=== PATIENT | male | born 1995 | race Caucasian/White ===

== ENCOUNTER → 2019-04-29 | Outpatient (CLI) | payer BC, OTHER ==
--- NOTE | 2019-04-29 13:04 | US ---
EXAMINATION TYPE: US abdomen limited DATE OF EXAM: 04/29/2019 COMPARISON: NONE CLINICAL HISTORY: R94.5 Elevated liver function test. no symptoms, diabetic EXAM MEASUREMENTS: Liver Length: 17.9 cm Gallbladder Wall: 0.2 cm CBD: 0.5 cm Right Kidney: 11.2 x 5.4 x 4.3 cm Pancreas: tail obscured by bowel gas, otherwise wnl Liver: wnl Gallbladder: wnl Evidence for sonographic Oliver's sign: no CBD: wnl Right Kidney: wnl IMPRESSION: Liver is homogeneous sonographically despite elevated liver function tests. No sonographi c evidence of cholelithiasis nor acute cholecystitis.
== END | disposition home or self-care (01) ==
LOC: RADUSWWP 07:47
PROVIDERS: ATTEND Internal Medicine
DX: R79.89 Other specified abnormal findings of blood chemistry (principal)
CPT/HCPCS: 76705

== ENCOUNTER → 2021-01-27 | Outpatient (CLI) | payer BC, OTHER ==
--- NOTE | 2021-01-27 20:08 | US ---
EXAMINATION TYPE: US liver DATE OF EXAM: 01/27/2021 COMPARISON: NONE CLINICAL HISTORY: R94.5 ABN LIVER FUNCTIONS. EXAM MEASUREMENTS: Liver Length: 16.5 cm Gallbladder Wall: 0.2 cm CBD: 0.3 cm Right Kidney: 11.4x6.5x4.7 cm Pancreas: Obscured by bowel gas Liver: wnl Gallbladder: wnl Evidence for sonographic Oliver's sign: No CBD: wnl Right Kidney: wnl IMPRESSION: 1. No acute abnormality
== END | disposition home or self-care (01) ==
LOC: RADUSWWP 09:18
PROVIDERS: ATTEND Internal Medicine
DX: R94.5 Abnormal results of liver function studies (principal)
CPT/HCPCS: 76705

== ENCOUNTER → 2021-06-30 | Outpatient (CLI) | payer BC, OTHER ==
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
== END | disposition home or self-care (01) ==
LOC: RADMRIMAIN 11:00
PROVIDERS: ATTEND Orthopaedic Surgery
DX: S83.512A Sprain of anterior cruciate ligament of left knee, initial encounter (principal); Y93.55 Activity, bike riding

== ENCOUNTER → 2021-08-09 | Outpatient (CLI) | payer BC, OTHER ==
[2021-08-09 18:05] LABS: Basophils # (A) 0.04 X 10*3/uL (0.00-0.10); Basophils % (A) 0.7 %; Eosinophils # (A) 0.23 X 10*3/uL (0.04-0.35); Eosinophils % (A) 4.2 %; HCT 48.5 % (39.6-50.0); HGB 15.4 g/dL (13.0-17.0); Immature Grans, Automated 0 %; Lymphocytes % (A) 36.4 %; MCH 29.3 pg (27.0-32.0); MCHC 31.8 g/dL (32.0-37.0); MCV 92.2 fL (80.0-97.0); Mean Platelet Volume 11.3 fL (9.5-12.2); Monocytes # (A) 0.33 X 10*3/uL (0.20-1.00); NRBC Per 100 WBC 0 /100 WBCS (0.0-0.0); Neutrophils % (A) 52.7 %; Platelet Count 275 X 10*3/uL (140-440); RBC 5.26 X 10*6/uL (4.40-5.60); RDW 11.8 % (11.5-14.5)
[2021-08-09 22:32] LABS: Anion Gap 14.2 mmol/L (10.00-18.00); Carbon Dioxide 26.8 mmol/L (20.0-27.5); Potassium 4.5 mmol/L (3.5-5.5)
== END | disposition home or self-care (01) ==
LOC: LABPAT 13:05
PROVIDERS: ATTEND Orthopaedic Surgery
DX: Z01.812 Encounter for preprocedural laboratory examination (principal); M23.91 Unspecified internal derangement of right knee
CPT/HCPCS: 80051; 85025

== ENCOUNTER 2021-08-18 07:26 | Day surgery (SDC) | payer BC, OTHER ==
[2021-08-16 18:15] VITALS: BMI 25.8
--- NOTE | 2021-08-17 15:10 | HP ---
HISTORY AND PHYSICAL REASON FOR ADMISSION: Surgery scheduled for 08/18/2021 HISTORY OF PRESENT ILLNESS: Jan Duque is a 26-year-old patient seen with progressive right knee pain. We discussed options. He elected to proceed with right knee arthroscopy. Consent is obtained. PAST MEDICAL HISTORY: Insulin-dependent diabetes. SURGICAL HISTORY: Noncontributory. DAILY MEDICATIONS: None. ALLERGIES: None noted. SOCIAL HISTORY: Denies tobacco use. PHYSICAL EVALUATION OF THE RIGHT KNEE: Range of motion is -1/2-110. Tenderness along the medial joint line. Positive medial Zeeshan's. Mild effusion. Ligaments are stable. Distal neurovascular exam is intact. RADIOGRAPHS: Radiographs of the right knee revealed no osseous abnormality. MRI right knee revealed a partial anterior cruciate ligament tear. IMPRESSION: 1. Internal derangement right knee with partial anterior cruciate ligament tear. 2. Insulin-dependent diabetes. PLAN: Right knee arthroscopy with debridement, partial ACL tear. Surgery scheduled for 08/18/2021. MMODL / IJN: [id number] /
[~2021-08-18 07:26] MED LIST: DEXAMETHASONE SOD PHOSPHATE 4 MG/ML 1 ML VIAL IV ONE; LACTATED RINGERS 1,000 ML IV SCH; LIDOCAINE 1% (10MG/ML) FOR IV START INTRADERMA PRN; ONDANSETRON 4 MG/2 ML VIAL IVP ONE; SCOPOLAMINE 1 MG/72 HR PATCH TRANSDERM ONE
[2021-08-18 08:22] LABS: Glucose,Whole Blood 152 mg/dL (70-110)
[2021-08-18] MEDS ORDERED: BUPIVACAINE (PF) 0.25% 30 ML VIAL SQ ONE ×2 (09:34→10:03)
[2021-08-18] MEDS ORDERED: LIDOCAINE 2% INJ 20 MG/ML (2 ML VIAL) ONE (09:35)
[2021-08-18] MEDS ORDERED: PROPOFOL 10 MG/ML 20 ML VIAL IV ONE (09:35)
[2021-08-18] MEDS ORDERED: fentaNYL (PF) 50 MCG/ML 2 ML AMP ONE (09:35)
[2021-08-18] MEDS ORDERED: MIDAZOLAM 2 MG/2 ML VIAL ONE (09:35)
[2021-08-18] MEDS ORDERED: HYDROmorphone (PF) 1 MG/ML ONE (09:35)
--- NOTE | 2021-08-18 10:20 | P.OP ---
Date of Procedure: 08/18/21 Preoperative Diagnosis: Internal derangement right knee Postoperative Diagnosis: 1. Tear medial and lateral meniscus right knee 2. Reactive synovitis medial, lateral and suprapatellar compartments right knee 3. 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 Arthroscopic partial medial and lateral meniscectomy right knee 2. Arthroscopic partial synovectomy medial, lateral and suprapatellar compartments right knee 3. Arthroscopic chondroplasty medial femoral condyle right knee Anesthesia: SCOTTIEA, local Surgeon: Ryley Nichols Estimated Blood Loss (ml): 7 Pathology: none sent Condition: stable Disposition: PACU Indications for Procedure: 26-year-old patient seen with progressive right knee pain. After having treatment options discussed, he elected to proceed with arthroscopy. Operative Findings: See description of procedure Description of Procedure: Patient was taken to the operative suite. Patient underwent a general anesthetic by the department of anesthesia. Patient was given preoperative antibiotics. The right lower extremity was placed in a well-padded arthroscopic leg modi. The right leg was prepped and draped in the normal sterile orthopedic fashion. A lateral parapatellar and suprapatellar incision was made. Trochars were inserted. Arthroscopy was initiated. Suprapatellar pouch revealed diffuse thick reactive synovitis. The patellofemoral joint appeared to articulate congruently. There was grade 1 chondromalacia of the patella. The scope was guided into the medial gutter. No loose bodies or plica were identified. The scope was then guided into the medial compartment. A medial parapatellar incision was made. Trocar inserted followed by probe. There was a tear involving the anterior horn of the medial meniscus. There were grade 1/2 chondromalacia changes of the medial femoral condyle with some osteochondral flap tears in that same area. There was thick reactive synovitis anteriorly. A posterior mid body horn were stable. I performed a partial medial meniscectomy getting down to stable meniscal tissue. I performed a chondroplasty of the medial femoral condyle getting down to stable osteochondral tissue. I performed a partial synovectomy decompressing the reactive synovitis. The residual meniscus was stable. There was good decompression of the synovitis. The residual osteochondral surface appeared stable. Scope and probe were then guided into the intercondylar notch. Cruciates were identified, probed and found to be stable without evidence of tearing. The scope and probe were then guided into lateral compartment. There was a tear involving the midbody lateral meniscus. There was no chondromalacia involving lateral compartment. There was some thick reactive synovitis anteriorly. I performed a partial lateral meniscectomy getting down to stable meniscal tissue. I performed a partial synovectomy. The residual meniscus was stable. There was good decompression of synovitis. The scope was in guided back into the suprapatellar compartment. I introduced a motorized shaver into the super patellar compartment. I performed a partial synovectomy. Shaver was removed. There was good decompression of synovitis. I took one more look around the entire knee, no residual debris. Instruments were now removed from the joint. The joint was infiltrated with .25% Marcaine. Steri-Strips were applied to the portal sites. Sterile dressings were applied. The patient was placed into a PLACIDO hose. No tourniquet was utilized. The patient was awakened, transferred to a bed and taken to recovery stable satisfactory condition.
[2021-08-18 10:24] VITALS: TEMP 97
[2021-08-18] MEDS: fentaNYL (PF) 50 MCG/ML 2 ML AMP IV PRN ×2 (10:53→11:04)
[2021-08-18 11:21] VITALS: RESP 18
[2021-08-18 11:40] VITALS: BP 141/80; PULSE 97
== END 2021-08-18 12:13 | disposition home or self-care (01) ==
LOC: OR 07:26
PROVIDERS: ATTEND Orthopaedic Surgery
DX: S83.241A Other tear of medial meniscus, current injury, right knee, initial encounter (principal); S83.281A Other tear of lateral meniscus, current injury, right knee, initial encounter; M65.9 Synovitis and tenosynovitis, unspecified; M94.261 Chondromalacia, right knee; X58.XXXA Exposure to other specified factors, initial encounter; E11.9 Type 2 diabetes mellitus without complications; Z79.4 Long term (current) use of insulin; Z79.899 Other long term (current) drug therapy; Z88.5 Allergy status to narcotic agent; F17.220 Nicotine dependence, chewing tobacco, uncomplicated
CPT/HCPCS: 29880; 29876; J2250; J1100; J0690; J2405; J3010; J1170; J2704; J2001

== ENCOUNTER 2022-02-03 19:14 | Emergency (ER) | payer OTHER, BC ==
[2022-02-03 19:38] VITALS: BP 163/90; PULSE 118; RESP 20; TEMP 98.5
[2022-02-03] MEDS ORDERED: KETOROLAC 15 MG/ML 1 ML VIAL IM STA (20:19)
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
[2022-02-03] MEDS ORDERED: CYCLOBENZAPRINE 10 MG TAB PO STA (21:07)
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
--- NOTE | 2022-02-03 21:40 | XR ---
PROCEDURE: XR lumbar spine 2 or 3V - 3V DATE AND TIME: 02/03/2022 8:44 PM CLINICAL INDICATION: [facility]; Trauma TECHNIQUE: Department protocol COMPARISON: None FINDINGS: There is straightening of the lumbar spine. There is no fracture or malalignment. No focal skeletal findings. The soft tissues are unremarkable. IMPRESSION: Lumbar spine straightening.
== END 2022-02-03 21:21 | disposition home or self-care (01) ==
LOC: EC 19:14
DX: S20.211A Contusion of right front wall of thorax, initial encounter (principal); S39.012A Strain of muscle, fascia and tendon of lower back, initial encounter; E11.9 Type 2 diabetes mellitus without complications; F17.210 Nicotine dependence, cigarettes, uncomplicated; Z88.5 Allergy status to narcotic agent; Z79.4 Long term (current) use of insulin; V49.40XA Driver injured in collision with unspecified motor vehicles in traffic accident, initial encounter
CPT/HCPCS: 72070; 72100; 71046; 99284; 96372; J1885

== ENCOUNTER → 2022-08-04 | Outpatient (CLI) | payer BC, OTHER ==
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
== END | disposition home or self-care (01) ==
LOC: RADXRYALE 16:36
PROVIDERS: ATTEND Internal Medicine
DX: M79.671 Pain in right foot (principal)

== ENCOUNTER → 2024-07-09 | Outpatient (CLI) | payer BC, OTHER ==
--- NOTE | 2024-07-09 18:39 | MR ---
INDICATION: Patient age:Male; 29 years old; Reason for study: R41.3 OTHER AMNESIA G44.309 POST-TRAUMATIC HEADACH; [facility]. COMPARISON: None. TECHNIQUE: Multi planar, multi sequence imaging was performed through the brain. The patient was then given 7.5 cc of Gadobutrol intravenously and multi planar, T1 fat-saturation images were obtained. FINDINGS: The osborne-white junctions, ventricular system, basal cisterns appear unremarkable. Age-appropriate cer ebral parenchymal volume. Diffusion-weighted imaging shows no evidence of restricted diffusion to sug gest acute/subacute infarct. Intracranial arterial flow voids are maintained. Midline structures show no abnormality. There are 2 foci of high T2/FLAIR signal intensity are seen within the left frontal lobe deep white matter. Largest measures up to 4 mm (series 601, image 21). The susceptibility weight ed images do not reveal any evidence for micro-hemorrhage. After administration of gadolinium, no abn ormal enhancement is seen. The bone marrow signal is within normal limits. The globes are unremarkable. Minimal mucosal thicken ing of the inferior bilateral maxillary sinuses. IMPRESSION: 1. No evidence of intracranial mass, acute/subacute infarct, or abnormal enhancement. 2. Couple of nonenhancing nonspecific foci within the left frontal lobe deep white matter. Etiologies include demyelinating disease versus chronic migraine versus small vessel ischemic disease versus va sculitis versus Lyme disease versus other considerations. [facility], , 07/09/2024 6:36 PM
== END | disposition home or self-care (01) ==
LOC: RADMRIMAIN 15:37
PROVIDERS: ATTEND Psychiatry & Neurology Neurology
DX: R41.3 Other amnesia (principal); R90.82 White matter disease, unspecified; G44.309 Post-traumatic headache, unspecified, not intractable
CPT/HCPCS: 70553; A9585